=== PATIENT | male | born 1950 | race Caucasian/White ===

== ENCOUNTER 2019-04-13 05:29 | Inpatient (IN) | payer MEDICARE ==
[2019-04-06 15:37] LABS: BASOPHILS # (AUTO) 0.1 X10'3 (0-0.2); BASOPHILS % (AUTO) 0.7 % (0-1); EOSINOPHILS # (AUTO) 0.1 X10'3 (0-0.9); EOSINOPHILS % (AUTO) 0.9 % (0-6); LYMPHOCYTES # (AUTO) 3.4 X10'3 (1.1-4.8); LYMPHOCYTES % (AUTO) 33.2 % (21-51); MEAN CORPUSCULAR HEMOGLOBIN 30.4 PG (27.0-31.0); MEAN CORPUSCULAR HGB CONC 34.5 g/dL (33.0-36.5); MEAN CORPUSCULAR VOLUME 88.3 FL (78-98); MEAN PLATELET VOLUME 8.8 FL (7.4-10.4); MONOCYTES % (AUTO) 10.3 % (2-12); NEUTROPHILS # (AUTO) 5.6 X10'3 (1.8-7.7); NEUTROPHILS % (AUTO) 54.9 % (42-75); PRE OP HEMATOCRIT 48.5 % (42.0-52.0); PRE OP HEMOGLOBIN 16.7 g/dL (14.0-17.9); PRE OP PLATELET COUNT 310 X10'3 (140-440); RED CELL DISTRIBUTION WIDTH 14.3 % (11.5-14.5)
[2019-04-06 15:50] LABS: PRE OP PROTIME 10.3 SECONDS (9.0-12.0)
[2019-04-06 15:53] LABS: ALBUMIN 3.9 G/DL (3.4-5.0); BLOOD UREA NITROGEN 16 MG/DL (7-18); BUN/CREATININE RATIO 18.8 (5.4-32.0); CALCIUM 9.6 MG/DL (8.5-10.1); CHLORIDE 104 MMOL/L (99-107); CREATININE 0.85 MG/DL (0.60-1.10); PRE OP ANION GAP 12 (8-16); PRE OP BILIRUB, TOTAL 0.5 MG/DL (0.0-1.0); PRE OP GLUCOSE 145 MG/DL (70-104); PRE OP POTASSIUM 3.9 MMOL/L (3.4-5.1); PRE OP SODIUM 140 MMOL/L (135-145); TOTAL CARBON DIOXIDE 23.9 MMOL/L (24-32); TOTAL PROTEIN 7.5 G/DL (6.4-8.2); eGFR 90 ML/MIN
[2019-04-06 15:54] LABS: ALBUMIN/GLOBULIN RATIO 1.1 (1.1-1.5); ALKALINE PHOSPHATASE 90 IU/L (46-116); PRE OP ALT 28 U/L (30-65); PRE OP AST 20 U/L (10-37)
[2019-04-13] VITALS (18 sets, daily range): BP systolic 113–139; BP diastolic 60–94
[~2019-04-13] VITALS: Ht 185.4 cm; Wt 128.0 kg
[~2019-04-13 05:29] MED LIST: NO HOME MEDS; ringers solution, lacted 1,000 ML IV SCH
[2019-04-13] MEDS ORDERED: oxyCODONE SR 10mg (sust. release) tab -2 tabs (20mg) PO ONE (05:30)
[2019-04-13] MEDS ORDERED: vancomycin inj 1,500 MG in normal saline 300ml IV soln IV ONE (05:30)
[2019-04-13] MEDS ORDERED: famotidine 20mg tablet PO ONE (05:30)
[2019-04-13] MEDS ORDERED: metoclopramide 5 mg/ml inj IV ONE (05:30)
[2019-04-13] MEDS ORDERED: gabapentin 300mg capsule PO ONE (05:30)
[2019-04-13] MEDS ORDERED: acetaminophen 325mg tablet PO ONE (05:30)
[2019-04-13] MEDS ORDERED: ceFAZolin 1GM/D5W- ADD-VANTAGE 50 ML IV ONE (05:30)
[2019-04-13] MEDS ORDERED: celeCOXIB 100mg capsule PO ONE (05:30)
[2019-04-13] MEDS ORDERED: tranexamic acid inj. 1,000 MG in normal saline 100 ML IV ONE (05:30)
[2019-04-13] MEDS ORDERED: LIDOcaine 1% (10mg/ml) 2ml vial ONE (05:49)
[2019-04-13] MEDS ORDERED: oxyCODONE/APAP 10/325mg tablet PO PRN (06:20)
[2019-04-13] MEDS ORDERED: diphenhydrAMINE 25mg capsule PO PRN ×2 (06:20)
[2019-04-13] MEDS ORDERED: acetaminophen 325mg tablet PO PRN (06:20)
[2019-04-13] MEDS ORDERED: HYDROmorphone 1 mg/ml syringe IV PRN (06:20)
[2019-04-13] MEDS ORDERED: bisacodyl 10mg suppository rectal RC PRN (06:20)
[2019-04-13] MEDS ORDERED: HYDROmorphone inj. 0.5 MG/0.5 ML DISP.SYRIN IV PRN (06:20)
[2019-04-13] MEDS ORDERED: tetracaine 1% (10mg/ml) pres. free inj. ONE (06:54)
[2019-04-13] MEDS ORDERED: ringers solution, lacted 1,000 ML IV SCH (06:57)
[2019-04-13] MEDS ORDERED: epiNEPHrine 1 mg/ml inj ONE (06:59)
[2019-04-13] MEDS ORDERED: ketorolac trometh. 30mg/ml inj. ONE (06:59)
[2019-04-13] MEDS ORDERED: cloNIDine hcl/PF 100mcg/ml inj ONE (07:00)
[2019-04-13] MEDS ORDERED: fentaNYL/PF 50MCG/1 ML 2ML syringe IV PRN ×2 (07:00)
[2019-04-13] MEDS ORDERED: vancomycin 1,000mg inj ONE (07:00)
[2019-04-13] MEDS ORDERED: hydrALAZINE 20mg/ml inj. IV PRN (07:00)
[2019-04-13] MEDS ORDERED: ondansetron/PF 4mg/2ml inj IV PRN ×2 (07:00→07:55)
[2019-04-13] MEDS ORDERED: labetalol 20mg/4ml (5mg/ml) syringe IV PRN (07:00)
[2019-04-13] MEDS ORDERED: ROPIVAcaine 0.5% (5mg/ml) 30ml vial ONE ×2 (07:00→08:08)
[2019-04-13] MEDS ORDERED: morphine 4 MG/ML inj SYRINge IV PRN ×2 (07:00)
[2019-04-13] MEDS ORDERED: MIDAZolam 1mg/ml 10ml vial ONE (07:01)
[2019-04-13] MEDS ORDERED: morphine /PF 1mg/ml 10ml inj. ONE (07:01)
[2019-04-13] MEDS ORDERED: fentaNYL/PF 50MCG/1 ML 2ML syringe ONE (07:01)
[2019-04-13] MEDS ORDERED: diphenhydrAMINE 50 mg/ml inj ONE (07:30)
[2019-04-13] MEDS ORDERED: diphenhydrAMINE 50 mg/ml inj IV PRN (07:55)
--- NOTE | 2019-04-13 09:15 | NUR ---
Received from OR via BED, accompanied by Anesthesiologist DR ERNST and report given by Anesthesiologist. PT DROWSY, DENIES PAIN, RIGHT KNEE W/DRSG, WRAP, ICE PACK, JOSELIN DRAIN CDI, DERMATOME LEVEL L-1, WARMING BLANKET APPLIED FOR TEMP OF 35.9. Addendum: 04/13/19 at 0946 by Sammi Lowe RN Amended: Links added.
--- NOTE | 2019-04-13 09:56 | NUR ---
received report from agnes oconnor in recovery
--- NOTE | 2019-04-13 10:15 | NUR ---
Report called to receiving nurse. Transferred via BED BU ORDERLYS, 1 BAG OF PERSONAL Belongings, GLASSES, DENTURES SENT W/PT TO ROOM 4021A. Special Issues communicated to receiving nurse. YES. Addendum: 04/13/19 at 1019 by Sammi Lowe RN Amended: Links added.
[2019-04-13] MEDS: ROPIVAcaine 0.2%/PF PUMP/bolus 550 ML INTERSCALE SCH (10:28)
[2019-04-13] MEDS: aspirin 325mg tablet PO SCH (10:42)
[2019-04-13] MEDS: gabapentin 300mg capsule PO SCH ×3 (10:42→20:33)
[2019-04-13] MEDS: ascorbic acid 500mg tablet PO SCH ×2 (10:42→20:33)
[2019-04-13] MEDS: multivitamins, therapeutics tablet PO SCH (10:42)
[2019-04-13] MEDS ORDERED: cefazolin/dext.iso 2gm/100ml 100 ML IV ONE (11:20)
[2019-04-13] MEDS: ondansetron/PF 4mg/2ml inj IV PRN (13:02)
[2019-04-13] MEDS ORDERED: TRANEXAMIC ACID IV ONE (13:31)
[2019-04-13] MEDS ORDERED: NORMAL SALINE IV ONE (13:31)
[2019-04-13] MEDS: potassium cl 20mEq in 1/2 NS 1,000 ML IV SCH ×2 (14:20→15:26)
[2019-04-13] MEDS: cefazolin/dext.iso 2gm/100ml 100 ML IV SCH (16:22)
[2019-04-13] MEDS ORDERED: metoclopramide 5 mg/ml inj IV PRN (17:40)
--- NOTE | 2019-04-13 18:30 | NUR ---
GAVE REPORT TO MAGGY KIDD
[2019-04-13] MEDS: sennosides 8.6mg tablet PO SCH (20:33)
[2019-04-14] MEDS: cefazolin/dext.iso 2gm/100ml 100 ML IV SCH (00:28)
[2019-04-14 02:00] VITALS: BP 127/71
[2019-04-14] MEDS: potassium cl 20mEq in 1/2 NS 1,000 ML IV SCH ×3 (05:21→14:20)
[2019-04-14] MEDS: ROPIVAcaine 0.2%/PF PUMP/bolus 550 ML INTERSCALE SCH (05:26)
[2019-04-14 05:48] LABS: BASOPHILS % (AUTO) 0.2 % (0-1); EOSINOPHILS # (AUTO) 0.1 X10'3 (0-0.9); EOSINOPHILS % (AUTO) 0.5 % (0-6); HEMATOCRIT 38.7 % (42.0-52.0); HEMOGLOBIN 13.1 g/dl (14.0-17.9); LYMPHOCYTES # (AUTO) 2.1 X10'3 (1.1-4.8); LYMPHOCYTES % (AUTO) 16.3 % (21-51); MEAN CORPUSCULAR HGB CONC 33.8 g/dL (33.0-36.5); MEAN CORPUSCULAR VOLUME 88.7 FL (78-98); MEAN PLATELET VOLUME 8.9 FL (7.4-10.4); MONOCYTES # (AUTO) 1.7 X10'3 (0-0.9); MONOCYTES % (AUTO) 13.5 % (2-12); NEUTROPHILS # (AUTO) 8.8 X10'3 (1.8-7.7); NEUTROPHILS % (AUTO) 69.5 % (42-75); PLATELET COUNT 248 X10'3 (140-440); RED BLOOD COUNT 4.37 X10'6 (4.70-6.10); RED CELL DISTRIBUTION WIDTH 14.3 % (11.5-14.5); WHITE BLOOD COUNT 12.7 X10'3 (4.5-11.0)
[2019-04-14 05:58] LABS: ANION GAP 6 (8-16); CHLORIDE 105 MMOL/L (99-107); POTASSIUM 4.3 MMOL/L (3.5-5.1); SODIUM 138 MMOL/L (135-145); TOTAL CARBON DIOXIDE 27.3 MMOL/L (24-32)
[2019-04-14 06:00] VITALS: BP 117/53
--- NOTE | 2019-04-14 06:10 | NUR ---
REPORT GIVEN TO MAGGY SUE.
--- NOTE | 2019-04-14 06:31 | NUR ---
Patient in room [facility]TH[facility] 4021. I have received report from Sheila WINTER and had the opportunity to ask questions and assume patient care.
[2019-04-14] MEDS: multivitamins, therapeutics tablet PO SCH (07:09)
[2019-04-14] MEDS: ascorbic acid 500mg tablet PO SCH ×2 (07:09→20:03)
[2019-04-14] MEDS: gabapentin 300mg capsule PO SCH ×3 (07:09→20:03)
[2019-04-14] MEDS: oxyCODONE/APAP 10/325mg tablet PO PRN ×3 (07:10→19:00)
[2019-04-14] MEDS: aspirin 325mg tablet PO SCH (07:11)
[2019-04-14 10:00] VITALS: BP 124/66
[2019-04-14 14:00] VITALS: BP 111/64
--- NOTE | 2019-04-14 16:16 | NUR ---
Joint Replacement Consult: Pt seen by LORNA for written/verbal high protein ed w/ RD contact information provided. Declines additional proteins at this time. Addendum: 04/14/19 at [address] Amended: Links added.
[2019-04-14 18:00] VITALS: BP 108/60
--- NOTE | 2019-04-14 18:10 | NUR ---
Received patient report from MAGGY Mcneill. Assumed patient care.
--- NOTE | 2019-04-14 18:14 | NUR ---
Problems reprioritized. Patient report given, questions answered & plan of care reviewed with Rosa WINTER.
[2019-04-14] MEDS: celeCOXIB 100mg capsule PO SCH (20:03)
[2019-04-14] MEDS: sennosides 8.6mg tablet PO SCH (20:03)
[2019-04-14] MEDS: magnesium hydroxide 30ml (MOM) UD suspension PO PRN (20:41)
[2019-04-14 22:00] VITALS: BP 94/58
[2019-04-15] MEDS: oxyCODONE/APAP 10/325mg tablet PO PRN ×4 (01:03→19:28)
[2019-04-15 05:20] LABS: BASOPHILS % (AUTO) 0.3 % (0-1); EOSINOPHILS # (AUTO) 0.2 X10'3 (0-0.9); EOSINOPHILS % (AUTO) 1.1 % (0-6); HEMATOCRIT 35.3 % (42.0-52.0); HEMOGLOBIN 12.2 g/dl (14.0-17.9); LYMPHOCYTES # (AUTO) 2.4 X10'3 (1.1-4.8); LYMPHOCYTES % (AUTO) 16.9 % (21-51); MEAN CORPUSCULAR HEMOGLOBIN 30.4 PG (27.0-31.0); MEAN CORPUSCULAR HGB CONC 34.5 g/dL (33.0-36.5); MEAN CORPUSCULAR VOLUME 88.2 FL (78-98); MEAN PLATELET VOLUME 9.1 FL (7.4-10.4); MONOCYTES # (AUTO) 1.9 X10'3 (0-0.9); MONOCYTES % (AUTO) 12.9 % (2-12); NEUTROPHILS # (AUTO) 9.9 X10'3 (1.8-7.7); NEUTROPHILS % (AUTO) 68.8 % (42-75); PLATELET COUNT 211 X10'3 (140-440); RED CELL DISTRIBUTION WIDTH 13.9 % (11.5-14.5); WHITE BLOOD COUNT 14.4 X10'3 (4.5-11.0)
--- NOTE | 2019-04-15 06:13 | NUR ---
Patient report given, questions answered and plan of care reviewed with MAGGY Hinton.
[2019-04-15 06:24] VITALS: BP 115/69
[2019-04-15] MEDS: ROPIVAcaine 0.2%/PF PUMP/bolus 550 ML INTERSCALE SCH ×2 (06:57→20:46)
[2019-04-15] MEDS: potassium cl 20mEq in 1/2 NS 1,000 ML IV SCH (07:02)
[2019-04-15] MEDS: gabapentin 300mg capsule PO SCH ×3 (07:17→20:29)
[2019-04-15] MEDS: multivitamins, therapeutics tablet PO SCH (07:17)
[2019-04-15] MEDS: ascorbic acid 500mg tablet PO SCH ×2 (07:17→20:29)
[2019-04-15] MEDS: aspirin 325mg tablet PO SCH (07:17)
[2019-04-15] MEDS: celeCOXIB 100mg capsule PO SCH ×2 (07:17→20:29)
[2019-04-15 10:31] VITALS: BP 132/69
[2019-04-15 18:00] VITALS: BP 96/59
--- NOTE | 2019-04-15 18:15 | NUR ---
Received patient report from MAGGY Hinton. Assumed patient care.
[2019-04-15] MEDS: magnesium hydroxide 30ml (MOM) UD suspension PO PRN (20:28)
[2019-04-15] MEDS: sennosides 8.6mg tablet PO SCH (20:29)
[2019-04-15 22:00] VITALS: BP 126/64
[2019-04-16] MEDS: oxyCODONE/APAP 10/325mg tablet PO PRN (03:17)
[2019-04-16 05:59] LABS: BASOPHILS % (AUTO) 0.4 % (0-1); EOSINOPHILS # (AUTO) 0.2 X10'3 (0-0.9); HEMATOCRIT 34.1 % (42.0-52.0); HEMOGLOBIN 11.6 g/dl (14.0-17.9); LYMPHOCYTES # (AUTO) 2.4 X10'3 (1.1-4.8); LYMPHOCYTES % (AUTO) 20.7 % (21-51); MEAN CORPUSCULAR HEMOGLOBIN 30.2 PG (27.0-31.0); MEAN CORPUSCULAR HGB CONC 34.1 g/dL (33.0-36.5); MEAN CORPUSCULAR VOLUME 88.7 FL (78-98); MONOCYTES # (AUTO) 1.5 X10'3 (0-0.9); MONOCYTES % (AUTO) 12.3 % (2-12); NEUTROPHILS # (AUTO) 7.7 X10'3 (1.8-7.7); NEUTROPHILS % (AUTO) 64.6 % (42-75); PLATELET COUNT 212 X10'3 (140-440); RED BLOOD COUNT 3.85 X10'6 (4.70-6.10); WHITE BLOOD COUNT 11.8 X10'3 (4.5-11.0)
--- NOTE | 2019-04-16 06:11 | NUR ---
Patient report given, questions answered and plan of care reviewed with MAGGY Hinton.
[2019-04-16 06:21] VITALS: BP 109/58
[2019-04-16] MEDS: aspirin 325mg tablet PO SCH (07:18)
[2019-04-16] MEDS: ondansetron/PF 4mg/2ml inj IV PRN (07:18)
[2019-04-16] MEDS: ascorbic acid 500mg tablet PO SCH (07:19)
[2019-04-16] MEDS: celeCOXIB 100mg capsule PO SCH (07:19)
[2019-04-16] MEDS: multivitamins, therapeutics tablet PO SCH (07:19)
[2019-04-16] MEDS: gabapentin 300mg capsule PO SCH (07:19)
== END 2019-04-16 11:32 | disposition home or self-care (01) | DRG 470 ==
LOC: PAS IN 05:29 → EDSTATUS 07:30 → ORTHO 4S 10:10 → EDSTATUS 14:30
PROVIDERS: ADMIT Orthopaedic Surgery; ATTEND Orthopaedic Surgery
PROC: 3E0T3BZ Introduction of Anesthetic Agent into Peripheral Nerves and Plexi, Percutaneous Approach (ICD-10-PCS; 2019-04-13)
PROC: 0SRC0J9 Replacement of Right Knee Joint with Synthetic Substitute, Cemented, Open Approach (ICD-10-PCS; principal; 2019-04-13 07:10)
DX: M17.11 Unilateral primary osteoarthritis, right knee (principal); D62 Acute posthemorrhagic anemia
CPT/HCPCS: 36415; 71046; 73560; 80051; 80053; 82948; 85025; 85610; 85730; 86885; 86900; 86901; 87081; 97110; 97116; 97161; 97530; A4215; A6454; A7000; C1713; C1758; C1776; G0378; J0171; J0690; J0735; J1200; J1885; J2001; J2250; J2270; J2405; J2765; J2795; J3010; J3370; J3480; J7120